=== PATIENT | male | born 1950 | race Caucasian/White ===

== ENCOUNTER → 2023-08-11 | Outpatient (REF) | payer OTHER, SELFPAY | LOC: DHSLP | PROVIDERS: ATTENDING PHYSICIAN Physician Assistant Medical | DX: G47.33 Obstructive sleep apnea (adult) (pediatric) (principal); R09.02 Hypoxemia | CPT/HCPCS: 95800 ==

== ENCOUNTER → 2023-09-12 07:20 | Outpatient (REF) | payer OTHER, SELFPAY | LOC: HWRAD 07:20 | PROVIDERS: ATTENDING PHYSICIAN Internal Medicine Critical Care Medicine; FAMILY PHYSICIAN Family Medicine | DX: F17.210 Nicotine dependence, cigarettes, uncomplicated (principal) | CPT/HCPCS: 71271 ==

== ENCOUNTER 2023-09-18 01:23 | Emergency (ER) | payer OTHER, SELFPAY ==
[2023-09-18 01:30] VITALS: BP 184/90
--- NOTE | 2023-09-18 02:43 | ED.MUSCINJ ---
HPI-Injury
General
Chief Complaint: Musculo-Skeletal Complaint
Source: patient
Exam Limitations: none
Time Seen by Provider: 09/18/23 02:42
Nursing documentation reviewed up to this point in time: agreed with
Travel History
Have you had any contact with someone who has COVID-19?: No
Do you have any symptoms of coronavirus? Fever > 100 degrees, chills, cough, shortness of breath, sore throat, loss of taste or smell, muscle aches, or headache?: No
History of Present Illness-Injury
Initial Injury comments:
Pleasant 72-year-old male who presents with left foot pain. Patient states that this has been present for the last 4 weeks. He received a dose of steroids in the symptoms resolved temporarily. They came back over the last few weeks. Patient is
due to see podiatry today. Tonight he was trying to sleep and did not want to deal with the pain any longer. Patient does not take NSAIDs at his family doctor's request. He does take Tylenol. He is not on insulin-dependent diabetic and takes
metformin. He has taken steroids in the past. Patient has no known injury.
Past History
Past History
ED Past Medical History: HTN and Hypercholesterolemia
ED Past Surgical History: Orthopedic and Tonsilectomy
Social History
Tobacco: Smoker
Alcohol: None
Drug: None
Review of Systems
Review of Systems
Allergies reviewed?: Yes
All Other Systems: ROS reviewed and negative except as documented in HPI and ROS
Musculoskeletal: Reports joint pain and edema
Psychiatric: Reports anxiety
Phy Exam
General Physical Exam
General Presentation: well appearing and mild distress
General age: appears stated age
General Habitus: normal
General Mental: alert
Pulmonary Exam
Pulmonary Exam: no respiratory distress
Neurological Exam
Neurological Exam: alert and oriented x3
Musculoskeletal Exam
Musculoskeletal Exam: full ROM and edema
Skin Exam
Skin Exam: warm/dry and erythema
Injury Course
Orders/Labs/Results
Orders:
Orders
09/18/23 01:37
Foot, Left 3 View [CR Foot - Left Min 3 Views] Urgent
Comment:
Reason For Exam: PERSISTANT PAIN ON TOP OF THE FOOT
MDM/Problems Addressed
Differential Diagnosis Includes:
Musculoskeletal pain, occult injury, gout, plantar fasciitis
Chronic conditions affecting care: DM and HTN
*Radiology
Radiology exam reviewed: preliminary read by ED provider and all reviewed NAD by ED Provider
*Pulse Oximetry
Patient hypoxic: no
*Critical Care Note
Total Time (30-74mins, 75-104mins- exclusive of procedures): Not Applicable
ED Attending Note
-
Portions of this chart may have been created with voice recognition software.� Occasional wrong word or��sound alike� substitutions may have occurred due to the inherent limitations of voice recognition software.
Discharge Plan
Departure
Patient Disposition: Home (Routine Discharge)
Date of Disposition: 09/18/23
Time of Disposition: 02:50
Patient with high blood pressure during this ER visit?: Yes
Discharge Problem:
Arthralgia of foot, left
Instructions: Muscle and Bone Pain (DC), BLOOD PRESSURE
Referrals:
Gideon Gonzalez MD [Family Provider] -
Activity Restrictions/Additional Instructions:
Please keep your appointment to see podiatry today.
It was a pleasure meeting you and taking part in your care. We hope for your continued healing and wellness.
Please read discharge instructions in their entirety. However, they are for general education and may not describe your exact diagnosis at discharge. Information on your ER visit and medical conditions were discussed with you along with appropriate
follow up information...
If indicated, please take your medications as instructed and indicated on discharge paperwork.
Please schedule a follow up appointment as directed. Call to schedule an appointment
Please return to the emergency department with ANY change in, persisting, or worsening of symptoms. If any of your symptoms do not improve, or persist, or become more severe within 6-12 hours, please return to the emergency department for further
care.
Please return to the emergency department if you develop a headache, neck pain/stiffness, fever greater than 100.4F, chest pain, shortness of breath, persistent nausea, vomiting, slurred speech, difficulty walking, numbness/tingling, weakness, signs
of infection or any other symptoms that are worrisome to you.
If you have any questions or concerns please do not hesitate to call the Hospital at or E-mail me directly at [email or web address]
Interventions
Interventions:
*Risk Screen - Suicide Last Done: 09/18/23 01:30
*General Assessment Last Done: 09/18/23 02:10
*Neglect/Abuse Screening Last Done: 09/18/23 01:30
ED- Fall Risk Assessment Last Done: 09/18/23 02:10
*ED COVID-19 Vaccine History Last Done: 09/18/23 02:10
ED-Musculoskeletal Assessment Last Done: 09/18/23 02:10
[2023-09-18] MEDS: TYLENOL 1000 MG PO (02:56)
[2023-09-18] MEDS: DECADRON 10 MG PO (02:56)
[2023-09-18 03:20] VITALS: BP 172/80
== END 2023-09-18 03:30 | disposition home or self-care (01) ==
LOC: EMR 01:23
PROVIDERS: EMERGENCY PHYSICIAN Student in an Organized Health Care Education/Training Program; FAMILY PHYSICIAN Family Medicine
DX: M25.579 Pain in unspecified ankle and joints of unspecified foot (principal); F17.200 Nicotine dependence, unspecified, uncomplicated; I10 Essential (primary) hypertension; E11.9 Type 2 diabetes mellitus without complications
CPT/HCPCS: 99283; 73630